=== PATIENT | male | born 1945 | race Caucasian/White ===

== ENCOUNTER 2019-06-05 21:11 | Emergency (ER) | payer MEDICARE, BC ==
[~2019-06-05] VITALS: Ht 177.8 cm; Wt 78.9 kg
[2019-06-05] MEDS ORDERED: HYDR-3165 PO (21:49)
[2019-06-05] MEDS ORDERED: HYDROcodone/APAP 10/325 1 TAB TABLET PO ONE (22:00)
[2019-06-05] MEDS ORDERED: ONDANSETRON ODT 4 MG TAB.RAPDIS PO ONE (22:45)
[2019-06-05] MEDS ORDERED: MORPHINE SULFATE 10 MG/ML SYRINGE. IM ONE (22:45)
[2019-06-05 23:14] LABS: BASO # 0.1 x10^3/uL (0.0-0.2); BASO % 1 % (0-3); EOS # 0.1 x10^3/uL (0.0-0.7); EOS % 2 % (0-3); HEMATOCRIT 41.8 % (39.0-53.0); HEMOGLOBIN 14.8 g/dL (13.0-17.5); LYMPH # 1.3 x10^3/uL (1.0-4.8); LYMPH % 19 % (24-48); MEAN CORPUSCULAR HEMOGLOBIN 32 pg (25-35); MEAN CORPUSCULAR HGB CONC 35 g/dL (31-37); MEAN CORPUSCULAR VOLUME 89 fL (79-100); MONO # 0.4 x10^3/uL (0.0-1.1); MONO % 6 % (0-9); NEUT # 5.2 x10^3uL (1.8-7.7); NEUT % 73 % (31-73); PLATELET COUNT 231 x10^3/uL (140-400); RED BLOOD COUNT 4.68 x10^6/uL (4.30-5.70); RED CELL DISTRIBUTION WIDTH 12.7 % (11.5-14.5); WHITE BLOOD COUNT 7.2 x10^3/uL (4.0-11.0)
[2019-06-05 23:23] LABS: CALCIUM 8.7 mg/dL (8.5-10.1); CREATININE 1.1 mg/dL (0.7-1.3); MAGNESIUM 1.9 mg/dL (1.8-2.4); POTASSIUM 3.6 mmol/L (3.5-5.1)
[2019-06-05] MEDS ORDERED: CYCL-331 PO (23:35)
[2019-06-05] MEDS ORDERED: CYCLOBENZAPRINE 10 MG TABLET. PO ONE (23:45)
--- NOTE | 2019-06-05 23:48 | RAD ---
Study: KNEE RIGHT 3V Indication: Right knee pain. Comparison: None. Findings: Medial femorotibial compartment joint space narrowing with genu varus alignment. Scattered small osteophytes. No acute fracture. Knee joint effusion. Vascular calcifications. Impression: Knee joint effusion appearing relatively small without an acute fracture. 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 Electronically signed by: NICOLASA SHORT MD (06/05/2019 11:45 PM) [id number]
[2019-06-06 00:30] VITALS: BP 170/90
--- NOTE | 2019-06-06 06:14 | PHYS DOC ---
Past History Past Medical History: Hypertension Past Surgical History: No Surgical History Alcohol Use: Rarely Drug Use: None Adult General Chief Complaint Chief Complaint: LOWER EXT PAIN HPI HPI Patient is a 73-year-old male presents with right posterior thigh, calf pain 18 hours. Patient was feeling yesterday and bending over [place]. Reports feeling a pull in one pain gradually worsened throughout the evening. [id number] pain medications taken with limited relief. Pain is rated moderate to severe and is worse with palpation and ambulation. No other symptoms or complaints. Review of Systems Review of Systems Review symptoms as per history of present illness. All other review symptoms are negative. All other systems were reviewed and found to be within normal limits, except as documented in this note. Current Medications Current Medications Current Medications Medications (Trade) Dose Ordered Sig/Hoang Start Time Stop Time Status Last Admin Dose Admin Acetaminophen/ Hydrocodone Bitart (Lortab 10/325) 1 tab 1X ONCE 06/05/19 22:00 06/05/19 22:01 DC Cyclobenzaprine HCl (Flexeril) 10 mg 1X ONCE 06/05/19 23:45 06/05/19 23:46 DC Morphine Sulfate (Morphine 10mg Syringe) 10 mg 1X ONCE 06/05/19 22:45 06/05/19 22:46 DC Ondansetron HCl (Zofran Odt) 4 mg 1X ONCE 06/05/19 22:45 06/05/19 22:46 DC Allergies Allergies Allergies Coded Allergies Type Severity Reaction Last Updated Verified Sulfa (Sulfonamide Antibiotics) Allergy Unknown 06/05/19 Yes Physical Exam Physical Exam Constitutional: Well developed, moderate discomfort secondary to pain.. [] HENT: Normocephalic, atraumatic, bilateral external ears normal, oropharynx moist, no oral exudates, nose normal. [] Eyes: PERRLA, EOMI, conjunctiva normal, no discharge. [] Neck: Normal range of motion, no tenderness, supple, no stridor. [] Cardiovascular:Heart rate regular rhythm, no murmur [] Lungs & Thorax: Bilateral breath sounds clear to auscultation [][] Extremities: Right leg, no swelling, bruising, posterior right thigh pain, tenderness, right posterior lateral calf tenderness. Pain reproduces with palpation and range of motion. No joint pain tenderness. Popliteal and pedal pulses 2+ and symmetric.. [] Neurologic: Alert and oriented X 3, right lower extremity, no motor weakness or loss of sensation.[] Psychologic: Affect normal, judgement normal, mood normal. [] Current Patient Data Vital Signs Vital Signs Date Time Temp Pulse Resp B/P (MAP) Pulse Ox O2 Delivery O2 Flow Rate FiO2 06/05/19 21:29 98.2 83 16 97 Room Air Lab Results Laboratory Tests Test 06/05/19 22:58 White Blood Count 7.2 x10^3/uL (4.0-11.0) Red Blood Count 4.68 x10^6/uL (4.30-5.70) Hemoglobin 14.8 g/dL (13.0-17.5) Hematocrit 41.8 % (39.0-53.0) Mean Corpuscular Volume 89 fL (79-100) Mean Corpuscular Hemoglobin 32 pg (25-35) Mean Corpuscular Hemoglobin Concent 35 g/dL (31-37) Red Cell Distribution Width 12.7 % (11.5-14.5) Platelet Count 231 x10^3/uL (140-400) Neutrophils (%) (Auto) 73 % (31-73) Lymphocytes (%) (Auto) 19 % (24-48) L Monocytes (%) (Auto) 6 % (0-9) Eosinophils (%) (Auto) 2 % (0-3) Basophils (%) (Auto) 1 % (0-3) Neutrophils # (Auto) 5.2 x10^3uL (1.8-7.7) Lymphocytes # (Auto) 1.3 x10^3/uL (1.0-4.8) Monocytes # (Auto) 0.4 x10^3/uL (0.0-1.1) Eosinophils # (Auto) 0.1 x10^3/uL (0.0-0.7) Basophils # (Auto) 0.1 x10^3/uL (0.0-0.2) D-Dimer (Elle) 0.32 mg/L (0.00-0.50) Sodium Level 144 mmol/L (136-145) Potassium Level 3.6 mmol/L (3.5-5.1) Chloride Level 106 mmol/L (98-107) Carbon Dioxide Level 31 mmol/L (21-32) Anion Gap 7 (6-14) Blood Urea Nitrogen 20 mg/dL (8-26) Creatinine 1.1 mg/dL (0.7-1.3) Estimated GFR (Cockcroft-Gault) 66.0 Glucose Level 149 mg/dL (70-99) H Calcium Level 8.7 mg/dL (8.5-10.1) Magnesium Level 1.9 mg/dL (1.8-2.4) Creatine Kinase 234 U/L (39-308) EKG EKG [] Radiology/Procedures Radiology/Procedures [] Course & Med Decision Making Course & Med Decision Making Pertinent Labs and Imaging studies reviewed. (See chart for details) [Reproducible right leg pain with history suggestive right leg strain/pulled muscle. Labs reassuring. Symptoms significant improvement with treatment.] Dragon Disclaimer Dragon Disclaimer This electronic medical record was generated, in whole or in part, using a voice recognition dictation system. Departure Departure: Impression: Primary Impression: Sprain of right knee/leg Disposition: HOME, SELF-CARE Condition: GOOD Patient Instructions: Sprain Additional Instructions: Take 2 Aleve twice daily for pain and hydrocodone as needed for additional relief. Wear compression wrap and apply ice. Limit weightbearing and strenuous physical activity. Follow-up with your PCP in 3-5 days if no improvement. Return to the ED if new or worsening symptoms. Scripts Cyclobenzaprine Hcl (CYCLOBENZAPRINE HCL) 10 Mg Tablet 1 TAB PO TID, #30 TAB Prov: CASSANDRA NORMAN DO 06/05/19 Hydrocodone Bit/Acetaminophen (NORCO 5-325 TABLET) 1 Each Tablet 1 TAB PO TID, #15 TAB Prov: CASSANDRA NORMAN DO 06/05/19 CASSANDRA NORMAN DO Jun 06, 2019 06:14
== END 2019-06-06 00:30 | disposition home or self-care (01) ==
LOC: ER 21:11
DX: S83.8X1A Sprain of other specified parts of right knee, initial encounter (principal); I10 Essential (primary) hypertension; Z88.2 Allergy status to sulfonamides; X50.9XXA Other and unspecified overexertion or strenuous movements or postures, initial encounter; Y93.9 Activity, unspecified; Y92.89 Other specified places as the place of occurrence of the external cause; Y99.8 Other external cause status
CPT/HCPCS: 36415; 73562; 80048; 82550; 83735; 85025; 85379; 99285